=== PATIENT | male | born 1955 | race Caucasian/White ===

== ENCOUNTER 2024-09-30 10:06 | Outpatient (CLI) | payer MEDICARE, BC, SELFPAY ==
--- OUTSIDE RECORDS SUMMARY | 2024-09-30 10:12 | XMS_ITS | Clinical Summary ---
Author Organization [facility] Address [address] [place] [id number] Care Team Providers Care Specialty Finishing Utility Person Name Role Phone Unavailable Primary Care Provider Unavailabl e Source Comments Patient records contain information from all sites at [facility]. For routine questions regarding patient records, call [phone] during business hours, M-F 8:00 AM - 5:00 PM Central Time. Record requests for emergency care only can be directed to [phone] at any time.[facility] Allergies No known active allergies Medications multivitamin tablet Take 1 tablet by mouth daily. 11/06/2010 Active lisinopril-hydro CHLOROthiazide (PRINZIDE,ZESTOR ETIC) 10-12.5 mg per tablet Take 1 tablet by mouth daily. 06/30/2023 Active atorvastatin (LIPITOR) 40 mg tablet Take 40 mg by mouth daily. 07/31/2023 Active cholecalciferol (VITAMIN D3) 50 mcg (2,000 Unit) tablet Take 50 mcg by mouth daily. 08/21/[address] Active [address] tablet Take 81 mg by mouth daily. 04/03/2016 Active co-enzyme Q-10 (CO Q-10) 100 mg capsule Take 100 mg by mouth daily. Active Active Problems No known active problems Immunizations Name Administration Dates Next Due H1N1 All Forms 11/02/2009 H1N1 Inj 11/02/2009 HZV (ZOSTAVAX) 09/30/2013 HepA Adult 10/11/2003,04/20/2002 HepB Adult 12/28/1990,08/31/1990,07/21/1990 Influenza TIV (IM) 08/15/2019, 0,08/01/2009,2007,09/09/2007,09/09/2005,08/10/2003 Influenza, Injectable, Mdck, Preservative Free, Quadrivalent 07/11/2014 Influenza, Quadrivalent, Adj uvanted, Preservative Free 07/30/2023,09/09/2022,10/10/2021,2019 Influenza, Unspecified 09/24/2015 PCV13 12/08/2019 PPSV23 12/13/2020 RZV (SHINGRIX) 05/04/2019,12/07/2018 SARS-COV-2 (COVID-19) - MODE RNA BIVALENT(Discontinued) 09/09/2022 SARS-COV-2 (COVID-19) - MODERNA(Discontinued) 10/10/2021 Td Preservative Free (TENIVA C, DECAVAC) 09/09/2005 Td, (Adult) Unspecified 09/09/2005 Tdap 10/27/2023,03/30/2012 Tuberculin Skin Test, Unspecified 11/02/2009 influenza vaccine quad (FLUZONE/FLUARIX) (6 months and older)(PF) 12/07/2018,10/22/2017,10/15/2016,2014 Social History Tobacco Use Types Packs/Day Years Used Date Smoking Tobacco: Never Smokeless Tobacco: Never Tobacco Cessation:Counseling Given: Not Answered Alcohol Use Standard Drinks/Week Comments Yes 0 (1 standard drink = 0.6 oz pur e alcohol) Nutrition Answer Date Recorded Nutrition: EVOO Fat Source Unknown 10/27 Nutrition: Servings of Fruits/Vegetables per Day Not on file 10/27/2023 Dental Answer Date Recorded Dental: Regular Dentist Unknown 10/27/19 24 Sex and Gender Information Value Date Recorded Sex Assigned at Not on file Legal Sex Male 12:11 PM LICENSED FUNERAL DIRECTOR Gender Identity Not on file Sexual Orientation Not on file Last Filed Vital Signs Vital Sign Reading Time Taken Comments Blood Pressure 103/70 10/28/2023 12:00 AM LICENSED FUNERAL DIRECTOR Pulse 63 10/28/2023 12:15 AM LICENSED FUNERAL DIRECTOR Temperature 37 C (98.6 F) 10/27/2023 11:45 PM LICENSED FUNERAL DIRECTOR Respiratory Rate 19 10/28/2023 12:15 AM LICENSED FUNERAL DIRECTOR Oxygen Saturation 92% 10/28/2023 12:15 AM LICENSED FUNERAL DIRECTOR Inhaled Oxygen Concentration - - Weight - - Height - - Body Mass Index - - Plan of Treatment Health Maintenance Due Date Last Done Comments Hepatitis C Screening 1955 Depression Screening (Annual PHQ-2) 10/26/2023 Fall Risk Screen (Annual) 10/26/2023 COVID-19 Vaccine ( - 2023- season) 2024 09/09/2022, 10/10/2021, 01/05/2021 Influenza Vaccine (#1) 2024 , 09/09/2022, 10/10/2021, Additional history exists Creatinine Level (Kidney Function Test) 10/27/2024 10/27/2023, 07/30/2023, 05/07/2022, Additional history exists Potassium Level 10/27/2024 10/27/2023, 02/2023, 05/07/2022, Additional history exists Sodium Level 10/27/2024 10/27/2023, 1002/2023, 05/07/2022, Additional history exists Fasting Glucose for Diabetes Screening 10/27/2026 10/27/2023, 07/30/2023, 05/07/2022, Additional history exists DTaP,Tdap,and Td Vaccines (3 - Td or Tdap) 10/27/2033 10/27/2023, 03/30/2012, 09/09/2005, Additional history exists Hepatitis B Vaccines Completed 12/28/1990, 08/31/1990, 07/21/1990 Hepatitis A Vaccines Completed 10/11/2003, 04/20/20 02 Zoster Vaccines Completed 05/04/2019, 11/26, 09/30/2013 Pneumococcal vaccine (65+ years) Completed 12/13/2020, 12/08/2019 Colonoscopy Discontinued 10/25/2022, 02/20/2022 Colorectal Cancer Screening Discontinued CT Colonography Discontinued Cologuard Discontinued FIT Discontinued IPV Vaccines Aged Out No longer eligi ble based on patient's age to complete this topic Procedures Procedure Name Priority Date/Time Associated Diagnosis Comments COMPREHENSIVE METABOLIC PANEL, S/P STAT 10/27/2023 9:02 PM LICENSED FUNERAL DIRECTOR from Last 3 Months or Most Recently Relevant to Health Maintenance Results * (ABNORMAL) Comprehensive Metabolic Panel (10/27/2023 9:02 PM LICENSED FUNERAL DIRECTOR) Potassium, P 3.0(L) 3.6 - 5.2 mmol/L 10/27/2023 9:30 PM LICENSED FUNERAL DIRECTOR CNFL Sodium, P 134(L) 135 - 145 mmol/L 10/27/2023 9:30 PM LICENSED FUNERAL DIRECTOR CNFL Chloride, P 99 98 - 107 mmol/L 10/27/2023 9:30 PM LICENSED FUNERAL DIRECTOR CNFL Bicarbonate, P 19(L) 22 - 29 mmol/L 10/27/2023 9:30 PM LICENSED FUNERAL DIRECTOR CNFL Anion Gap, P 16(H) 7 - 15 10/27/2023 9:30 PM LICENSED FUNERAL DIRECTOR CNFL BUN (Blood Urea Nitrogen), P 10 8 - 24 mg/dL 10/27/2023 9:30 PM LICENSED FUNERAL DIRECTOR CNFL Creatinine 0.78 0.74 - 1.35 mg/dL 10/27/2023 9:30 PM LICENSED FUNERAL DIRECTOR CNFL Estimated GFR (eGFR) >90 >=60 mL/min/BS A 10/27/2023 9:30 PM LICENSED FUNERAL DIRECTOR CNFL Comment: Estimated GFR calculated using the 2020 CKD_EPI creatinine equation. Calcium, Total, P 9.1 8.8 - 10.2 mg/dL 10/27/2023 9:30 PM LICENSED FUNERAL DIRECTOR CNFL Glucose, P 171(H) 70 - 140 mg/dL 10/27/2023 9:30 PM LICENSED FUNERAL DIRECTOR CNFL Protein, Total, P 6.9 6.3 - 7.9 g/dL 10/27/2023 9:30 PM LICENSED FUNERAL DIRECTOR CNFL Albumin, P 4.4 3.5 - 5.0 g/dL 10/27/2023 9:30 PM LICENSED FUNERAL DIRECTOR CNFL Aspartate Aminotransferase (AST), P 25 8 - 48 U/L 10/27/2023 9:30 PM LICENSED FUNERAL DIRECTOR CNFL Alkaline Phosphatase, P 80 40 - 129 U/L 10/27/2023 9:30 PM LICENSED FUNERAL DIRECTOR CNFL Alanine Aminotransferase (ALT), P 28 7 - 55 U/L 10/27/2023 9:30 PM LICENSED FUNERAL DIRECTOR CNFL Bilirubin, Total, P 0.3 0.0 - 1.2 mg/dL 10/27/2023 9:30 PM LICENSED FUNERAL DIRECTOR CNFL Blood (Blood, Venous) 10/27/2023 9:02 PM LICENSED FUNERAL DIRECTOR 10/27/2023 9:06 PM LICENSED FUNERAL DIRECTOR us Srinath Newberry APRN, C.N.P., D.N.P. LAB BLOOD AD D-ON Final Result [facility] [address] [place] [id number], [facility] [place] CNFL [facility] in [address] [address] from Last 3 Months or Most Recently Relevant to Health Maintenance Insurance [facility] MEDICARE
--- OUTSIDE RECORDS SUMMARY | 2024-09-30 10:12 | XMS_ITS | Clinical Summary ---
Author Organization [facility] Address [address] [place] [address] Care Team Providers Care Customer Support Agent Name Role Phone No Primary/Referring, Phy Primary Care Provider Unavailable Source Comments You are receiving this document as you are listed as the primary care provider,follow-up provider, or the patient has been referred to you for consultation.This is in compliance with the Medicare and[facility] E[facility] Incentive Program,which states Providers who transition their patient to another setting of careor provider of care or refers their patient to another provider of care shouldprovide summary care record for each transition of care or referral. [employer] Allergies No known active allergies Medications Medication Sig Dispensed Refills Start Date End Date Status oxyCODONE (ROXICODONE) 5 MG immediate release tablet Take 1 Tablet (5 mg) by mouth every 6 hours as needed for Pain. 8 Tablet 10/28/2023 Active atorvastatin (LIPITOR) 40 MG tablet Take 1 Tablet (40 mg) by mouth. 07/31/2023 Active Coenzyme Q10 100 MG Activ e Fluticasone Propionate (CUTIVATE) 0.05 % cream Apply 1 Application topically daily. 09/09/2023 Active ketoconazole (NIZORAL) 2 % cream SMARTSI Application Topical 1 to 2 Times Daily 09/09/2023 Active lisinopril-hydrochl orothiazide (PRINZIDE) 10-12.5 MG tablet Take 1 Tablet by mouth daily. 06/30/2023 Active metroNIDAZOLE (METROCREAM) 0.75 % cream Apply topically. 09/09/2023 Active neomycin-polymyxin- dexamethasone (MAXITROL) 3.5-17454-7.1 OINT eye ointment 09/09/2023 Active Active Problems Problem Noted Date Diagnosed Date Family history of ischemic heart disease 024 Overview (11/26/2023): - His father Hyperlipidemia 11/26/2023 Ascending aorta dilatation 12/07/2018 Essential hypertension 10/22/2017 Elevated PSA 12/26/2015 MUNA (obstructive sleep apnea) 10/08/2015 Colon polyp 11/02/2009 Overview (11/26/2023): Colonoscopy 12/2010 normal repeat in 5 years Colonoscopy 09/2016 diverticulosis repeat in 5 years Colonoscopy 01/2022 4-TA, diverticuli, repeat in 5 years Obesity, unspecified 09/09/2007 Social History Tobacco Use Types Packs/Day Years Used Date Smoking Tobacco: Never Tobacco Cessation:Counseling Given: Not Answered Alcohol Use Standard Drinks/Week Comments Yes 0 (1 standard drink = 0.6 oz pur e alcohol) Sex and Gender Information Value Date Recorded Sex Assigned at Not on file Gender Identity Not on file Sexual Orientation Not on file Last Filed Vital Signs Vital Sign Reading Time Taken Comments Blood Pressure 116/76 10/28/2023 9:13 AM SLUBBER HAND Pulse 59 10/28/2023 9:15 AM SLUBBER HAND Temperature 36.4 C (97.6 F) 10/28/2023 1:17 AM SLUBBER HAND Respiratory Rate 16 10/28/2023 5:00 AM SLUBBER HAND Oxygen Saturation 93% 10/28/2023 9:15 AM SLUBBER HAND Inhaled Oxygen Concentration - - Weight 109.8 kg (242 lb) 11/05/2023 8:00 AM SLUBBER HAND Height 177.8 cm (5' 10) 11/05/2023 8:00 AM SLUBBER HAND Body Mass Index 34.72 11/05/2023 8:00 AM SLUBBER HAND Plan of Treatment Health Maintenance Due Date Last Done Comments Colon Cancer Screening Plan Due 1955 Hep C Screening (Preventive Services) 1955 Medicare Annual Wellness Visit 1955 Cholesterol 1989 COVID-19 Vaccine ( season) 2024 09/09/2022, 10/10/2021, 01/05/2021 Influenza (#1) 2024 07/30/2023, 08/26, 10/10/2021, Additional history exists RSV (1 - 1-dose 75+ series) 2029 DTaP/Tdap/Td (3 - Tdap) 10/27/2033 10/27/19 24, 03/30/2012, 09/09/2005, Additional history exists HepA Aged Out 10/11/2003, 04/20/2002 No lo nger eligible based on patient's age to complete this topic Zoster/Shingles Completed 05/04/2019, 11/26, 09/30/2013 Pneumococcal 65+ Yrs Completed 12/13/2020, 12/08/19 HepB Aged Out No longer eligi ble based on patient's age to complete this topic Hib Aged Out No longer eligi ble based on patient's age to complete this topic IPV (Polio) Aged Out No longer eligi ble based on patient's age to complete this topic RSV Aged Out No longer eligi ble based on patient's age to complete this topic MCV4 Aged Out No longer eligi ble based on patient's age to complete this topic Care Teams Customer Support Agent Relationship Specialty Start Date End Date No Primary/Referring, Phy PCP - General 10/28/23
--- OUTSIDE RECORDS SUMMARY | 2024-09-30 10:12 | XMS_ITS | Clinical Summary ---
Author Organization [facility] Address [place], [place] [address] Care Team Providers Care Unix Consultant Name Role Phone VotelMircale MD Primary Care Provider + Allergies No known active allergies Medications Medication Sig Dispensed Refills Start Date End Date Status PEPCID AC 10 MG TAB prn 0 09/09/2007 Activ e Cholecalciferol, Vitamin D3, (VITAMIN D-3) 2,000 unit tablet Take by mouth once daily. 0 08/21/2010 Active omega-3 fatty acids-vitamin E (FISH OIL) 1,000 mg Cap Take 1 capsule by mouth once daily. 0 11/06/2010 Active multivitamin (MVI) tablet Take 1 tablet by mouth once daily. 0 11/06/2010 Active aspirin (ECOTRIN) 81 mg enteric coated tablet Take 1 tablet by mouth once daily with a meal. 0 04/03/2016 Active coenzyme q10 (CO Q-10) 100 mg cap Active hydrocortisone 1 % creamIndications:Ski n irritation Apply topically to affected area(s) 2 times daily. Use as instructed 20 g 10/13/2019 Active ketoconazole 2% topical (NIZORAL) creamIndications:Den orrheic dermatitis Apply topically to affected area(s) 2 times daily. 60 g 10/10/2021 Active CPAPIndications:MUNA (obstructive sleep apnea) CPAP machine for home use at pressure- 9 cmw starting pressure 7 cmw; nasal mask x1/3month with nasal cushion x2/mo Heat humidifier x 1/5 year, Humidifier chamber x 1/6mo, standard tubing x 1/3mo, Headgear x 1/6mo, Chin strap x 1/6 months, Filters: Disposable x 2pk/1mo & Reusable x 1pk/6mo BHAVANI #99 Usage daily 1 Each 11 01/01/2024 Active atorvastatin (LIPITOR) 40 mg tabletIndications:El evated LDL cholesterol level Take 1 Tablet (40 mg) by mouth once daily. 90 Tablet 3 08/02/2024 Active lisinopril-hydrochlo rothiazide (10-12.5 mg) tablet (PRINZIDE; ZESTORETIC)Indicatio ns:Essential hypertension Take 1 Tablet by mouth once daily. 90 Tablet 3 08/02/2024 Active sildenafil citrate (VIAGRA) 25 mg tabletIndications:Er ectile dysfunction of organic origin Take 1 Tablet (25 mg) by mouth once daily if needed for Erectile Dysfunction. Take 30 minutes to 4 hours before sexual activity. Max 100mg/24hr. 30 Tablet 11 08/02/2024 Active Active Problems Problem Noted Date Diagnosed Date Ascending aorta dilatation 12/07/2018 HTN (hypertension) 10/22/2017 Elevated PSA 12/26/2015 MUNA 11/03/06 AHI 50.5 10/08/2015 Colon polyp 11/02/2009 Overview (02/24/2022): Colonoscopy 12/2010 normal repeat in 5 years Colonoscopy 09/2016 diverticulosis repeat in 5 years Colonoscopy 01/2022 4-TA, diverticuli, repeat in 5 years Unspecified sleep apnea 09/09/2007 Overview (09/09/2007): on cpap Obesity, unspecified 09/09/2007 HYPERTENSION , BORDERLINE Other and unspecified hyperlipidemia POSITIVE FAMILY HISTORY OF ISCHEMIC HEART DISEAS E Overview (09/28/2006): - His father Resolved Problems Problem Noted Date Diagnosed Date Resolved Date Melanoma of skin, site unspecified 09/09/2007 12/13/2020 Overview (09/09/2007): superficial spread type completely excised PAROXYSMAL ATRIAL FIBRILLATION 12/13/2020 Overview (11/02/2009): Ablation successful 10/2006 Encounters Date Type Department Care Team Description 09/30/2024 Travel 08/24/2024 11:00 AM CDT Ancillary Procedure [facility] [address] [place] [address] 08/24/2024 Travel 08/15/[address] [facility] [address] [place] [address] David Jeter MD Questions 08/04/[address] [facility] [address] [place] [address] Miracle Mckeon MD Prior Authorization (sildenafil citrate (VIAGRA) 25 mg tablet EXCLUDED ) 08/02/2024 10:00 AM CDT Office Visit [address] [address] Miracle Mckeon MD Medicare ANNUAL (subsequent) Visit (69 year old male); Immunization/Injectio n 08/02/[address] [address] Miracle Mckeon MD Preoperative Exam 08/02/[address] [facility] [address] [place] [address] David Jeter MD Appointment 08/02/2024 Travel 07/12/2024 Travel 07/12/[address] [address] Miracle Mckeon MD Refill Request (Lisinopril-hydrochlo rothiazide 10 Mg-12.5 Mg) from Last 3 Months Immunizations Name Administration Dates Next Due COVID-19 vaccine (Geoffrey-J& J) MIKAL, MDV 01/05/2021 COVID-19 vaccine (Moderna 100mcg/0.5mL) MIKAL, MDV 10/10/2021 COVID-19 vaccine (Moderna 50mcg/0.5mL) 12YO+ BIVALENT PF, MDV 09/09/2022 Hepatitis A (Adult) 10/11/2003,04/20/2002 Hepatitis B (Adult) 12/28/1990,08/31/1990,1989 Influenza A (H1N1), Inactivated 11/02/2009 Influenza A (H1N1), Inactiva kuldip (Age >=3 Years) 11/02/2009 Influenza Virus, Unspecified 09/24/2015 Influenza, IIV3 (Age >=3 years) 08/21/20 10,08/01/2009,09/18/2008,2006,09/09/2005,08/10/2003 Influenza, IIV4 12/07/2018, 7,10/15/2016,2014,07/11/2014 Influenza, Inactivated AIIV4 (Age 65+ Years) Preserv Free 07/30/2023,09/09/2022,10/10/2021,2019 Influenza, Inactivated IIV3 (Age 65+ Years) Preserv Free 08/02/2024,08/15/2019 Pneumococcal Poly,23-Valent (Pneumovax) 12/13/2020 Pneumococcal conj 13-Valent (Prevnar 13) 12/08/2019 TD, UNSPECIFIED 09/09/2005 Td (Age >=7 Years) 09/09/2005 Td, Preservative Free (age > = 7 Years) 09/09/2005 Tdap 10/27/2023,03/30/2012 Tuberculin (PPD) 11/02/2009 Tuberculin Skin Test, Unspecified 11/02/2009 Zoster (Shingrix-RZV, recombinant) 05/04/2019, Zoster (Zostavax-ZVL, live) 09/30/2013 Family History Medical History Relation Name Comments Other Father d79, cad, strok e Other Mother hx liver ca, di ed of CVA age 87 Other Sister 2 breast ca Relation Name Status Comments Father Mother Sister 1 Alive Sister 2 Alive Social History Tobacco Use Types Packs/Day Years Used Date Smoking Tobacco: Never Smokeless Tobacco: Never Tobacco Cessation:Counseling Given: Yes Alcohol Use Standard Drinks/Week Comments Yes 0 (1 standard drink = 0.6 oz pur e alcohol) 10 drinks per week PHQ-2 Answer Date Recorded PHQ-2 TOTAL SCORE 0 08/02/2024 Social Connections Answer Date Recorded Do you often feel lonely or isolated from those around you? 0 08/02/2024 Financial Resource Strain Answer Date R ecorded Difficulty of Paying Living Expenses 3 08/02/2024 Difficulty of Paying Living Expenses Not on file 08/02/2024 Food Insecurity Answer Date Recorded Do you worry your food will run out before you are able to buy more? 1 08/02/2024 Transportation Needs Answer Date Record ed Does lack of transportation keep you from medica l appointments? 1 08/02/2024 Does lack of transportation keep you from work, meetings or getting things that you need? 1 08/02/2024 Housing Stability Answer Date Recorded What is your housing situation today? 1 08/02/2024 Sex and Gender Information Value Date Recorded Sex Assigned at Not on file Gender Identity Not on file Sexual Orientation Not on file Obstetrics History Last Filed Vital Signs Vital Sign Reading Time Taken Comments Blood Pressure 134/77 08/02/2024 10:20 AM CDT Pulse 77 08/02/2024 10:20 AM CDT Temperature 36.7 C (98 F) 08/02/2024 10:20 AM CDT Respiratory Rate 16 08/13/2020 3:26 PM CDT Oxygen Saturation 95% 08/02/2024 10: 20 AM CDT Inhaled Oxygen Concentration - - Weight 108.4 kg (238 lb 14.4 oz) 2023 10:20 AM CDT Height 173.8 cm (5' 8.43) 08/02/2024 1 0:20 AM CDT Body Mass Index 35.87 08/02/2024 10:20 AM CDT Plan of Treatment Upcoming Encounters Date Type Department Care Team (Late st Contact Info) Description 09/30/2024 10:15 AM TRACTOR TECHNICIAN Office Visit [facility] [address] [place] [address] David eJter MD [address] [place] [address] Arrived Health Maintenance Due Date Last Done Comments COVID-19 vaccine series ( season) 2024 09/09/2022, 10/10/2021, 01/05/2021 BMI (ht and wt on same day) for age 18+ 08/02/2025 08/02/2024, 10/08/2023, 07/30/2023, Additional history exists Medicare Wellness for age 65+ 08/03/2025, 07/30/2023, 05/07/2022, Additional history exists Depression screening for age 12+ 08/04/2025 08/04/2024, 08/02/2024, 08/02/2024, Additional history exists Colonoscopy through age 75 02/20/202702/20, 02/20/2022, 10/10/2016, Additional history exists Lipids for age 45-75 08/02/2029 08/02/2024, 07/30/2023, 05/07/2022, Additional history exists Tetanus booster 10/27/2033 10/27/2023, 02/2012, 09/09/2005, Additional history exists Zoster (shingles) series for age 50+ Completed 05/04/2019, 12/07/2018, 09/30/2013 Pneumococcal series for age 65+ Completed , 12/08/2019 Hepatitis C screening for ag e 18-79 Completed 05/07/2022 Tdap Completed 10/27/2023, 03/30/2012 Influenza for age 65+ Completed 08/02/2024 , 07/30/2023, 09/09/2022, Additional history exists Procedures Procedure Name Priority Date/Time Associated Diagnosis Comments ESOPHAGOGASTRODUODENOSCOPY Routine 09/30 8:05 AM TRACTOR TECHNICIAN Esophageal dysphagia ECHO TTE COMPLETE W CONTRAST Routine 11:55 AM CDT Aneurysm of ascending aorta without rupture (HC) CBC WITH AUTO DIFFERENTIAL Routine 08/02 11:41 AM CDT LIPID PANEL W REFLEX MEASURE D LDL Routine 08/02/2024 11:41 AM CDT Elevated LDL cholesterol level ALT (SGPT) Routine 08/02/2024 11:41 AM CDT Elevated LDL cholesterol level BASIC METABOLIC PANEL Routine 08/02/2024 11:41 AM CDT Medicare annual wellness visit, subsequent ANTI HCV Routine 05/07/2022 10:55 AM CDT Screening for hepatitis C declined COLONOSCOPY 02/20/2022 11:01 AM CDT from Last 3 Months or Most Recently Relevant to Health Maintenance Results * ECHO TTE COMPLETE W CONTRAST (08/24/2024 11:55 AM CDT) AORTIC VALVE MEAN PG 7 mmHg EJECTION FRACTION 59 % LVEDD 4.0 cm Anatomical Region Laterality Modality Ultrasound 08/24/2024 11:0 4 AM CDT Narrative 08/24/2024 12:36 PM CDT ECHOCARDIOGRAM JOSS SANDERSON : 1955 69 years Study Date: 08/24/2024 11:04:06 AM Gender: M BP: 134/77 mmHg Height: 173.00 cm BSA: 2.20 m Weight: 108.00 kg Tech: MSR Referring MD: MIRACLE MCKEON Site: [facility] Reading Location: Mobile OP Patient Location: Outpatient. Procedure: Color Doppler, Spectral Doppler and 2D w/ Contrast. Indication for study: Aneurysm of ascending aorta without rupture Cardiac Rhythm: Regular.Study quality: Technically limited. Final Impressions: 1. Technically limited exam. 2. Normal left ventricular size, normal wall thickness, normal global systolic function, calculated EF of 59 %. 3. Mildly enlarged left atrium. 4. The aortic valve is trileaflet and sclerotic, no stenosis and mild eccentric posteriorly directed regurgitation. 5. The aortic sinus is dilated with a maximal diameter of 4.2 cm. 6. The ascending aorta is normal for age/sex/bsa with a maximal diameter of 3.9 cm. 7. Echo contrast was administered to enhance visualization of all left ventricular segments. 8. Compared to prior study from 2021, aortic sinus has increased from 4.0- >4.2cm. Otherwise no change. Chamber Sizes and Function Normal left ventricular size, normal wall thickness, normal global systolic function, calculated EF of 59 %. No resting regional wall motion abnormality visualized. Left atrial size is mildly enlarged. Right ventricular cavity size is normal, global systolic RV function is normal. RV wall thickness is normal. The right atrium is normal. The pulmonary artery is not well visualized. The sinus of Valsalva is dilated. The ascending aorta is normal for age/sex/bsa. Valves, RV Pressures and Diastolic Function The aortic valve is trileaflet and sclerotic, no stenosis and mild regurgitation. The mitral valve is normal in structure, trace mitral regurgitation. Indeterminate pattern of LV diastolic filling. The tricuspid valve is normal in structure. Tricuspid regurgitation is trace regurgitation. The pulmonic valve is not well visualized. Trace pulmonary regurgitation. Masses, Effusion, Shunts There is no pericardial effusion. The inferior vena cava is dilated, respiratory size variation less than 50%. No left to right shunting was detected by limited color flow Doppler interrogation of the interatrial septum. MEASUREMENTS AND CALCULATIONS 2-D Measurements and LV Function: LVID (d) 4.0 cm Planimetered EF 59 % LVID (s) 2.5 cm LV FS% (2D) 38 % IVS (d) 0.8 cm LVOT diameter 2.1 cm LVPW (d) 1.0 cm HR 57 bpm Ao Sinus 4.2 cm LA Vol index 39 ml/m2 Asc Ao 3.9 cm RV Max 4C (d) 4.2 cm Diastology: Mitral Tissue Doppler E Peak 0.8 m/s e', Septum 0.09 m/s A Peak 0.6 m/s e', Lateral 0.09 m/s E/A 1.4 E/e' Average 9.26 DT 159 msec Aortic Valve: Vmax 1.8 m/s RACHAEL (V) 2.14 cm AI P 1/2 728 msec VTI 0.44 m RACHAEL (I) 1.90 cm LVOT V max 1.2 m/s Max PG 13 mmHg LVOT VTI 0.25 m Mean PG 7 mmHg SV 83 ml Dim Index 0.56 SV index 38 ml/m CO 4.8 l/min CI 2.2 l/min/m Mitral Valve: MVA 4.8 cm MV P 1/2 46 msec Tricuspid Valve and estimated PA pressures: TAPSE 2.7 cm Contrast documentation: 3ml ml diluted Definity, lot #[id number], [facility]# [id number] was administered peripherally to enhance visualization of all left ventricular segments. . This study was interpreted by an [facility] accredited facility. Final Procedure Note Natanael Beard MD - 08/24/2024 ECHOCARDIOGRAM JOSS SANDERSON : 1955 69 years Study Date: 08/24/2024 11:04:06 AM Gender: M BP: 134/77 mmHg Height: 173.00 cm BSA: 2.20 m Weight: 108.00 kg Tech: MSR Referring MD: MIRACLE MCKEON Site: [facility] Reading Location: Mobile OP Patient Location: Outpatient. Procedure: Color Doppler, Spectral Doppler and 2D w/ Contrast. Indication for study: Aneurysm of ascending aorta without rupture Cardiac Rhythm: Regular.Study quality: Technically limited. Final Impressions: 1. Technically limited exam. 2. Normal left ventricular size, normal wall thickness, normal globalsystolic function, calculated EF of 59 %. 3. Mildly enlarged left atrium. 4. The aortic valve is trileaflet and sclerotic, no stenosis and mildeccentric posteriorly directed regurgitation. 5. The aortic sinus is dilated with a maximal diameter of 4.2 cm. 6. The ascending aorta is normal for age/sex/bsa with a maximal diameterof 3.9 cm. 7. Echo contrast was administered to enhance visualization of all leftventricular segments. 8. Compared to prior study from 2021, aortic sinus has increased from4.0->4.2cm. Otherwise no change. Chamber Sizes and Function Normal left ventricular size, normal wall thickness, normal globalsystolic function, calculated EF of 59 %. No resting regional wall motionabnormality visualized. Left atrial size is mildly enlarged. Rightventricular cavity size is normal, global systolic RV function is normal.RV wall thickness is normal. The right atrium is normal. The pulmonaryartery is not well visualized. The sinus of Valsalva is dilated. Theascending aorta is normal for age/sex/bsa. Valves, RV Pressures and Diastolic Function The aortic valve is trileaflet and sclerotic, no stenosis and mildregurgitation. The mitral valve is normal in structure, trace mitralregurgitation. Indeterminate pattern of LV diastolic filling. Thetricuspid valve is normal in structure. Tricuspid regurgitation is traceregurgitation. The pulmonic valve is not well visualized. Trace pulmonaryregurgitation. Masses, Effusion, Shunts There is no pericardial effusion. The inferior vena cava is dilated,respiratory size variation less than 50%. No left to right shunting wasdetected by limited color flow Doppler interrogation of the interatrialseptum. MEASUREMENTS AND CALCULATIONS 2-D Measurements and LV Function: LVID (d) 4.0 cm Planimetered EF 59 % LVID (s) 2.5 cm LV FS% (2D) 38 % IVS (d) 0.8 cm LVOT diameter 2.1 cm LVPW (d) 1.0 cm HR 57 bpm Ao Sinus 4.2 cm LA Vol index 39 ml/m2 Asc Ao 3.9 cm RV Max 4C (d) 4.2 cm Diastology: Mitral Tissue Doppler E Peak 0.8 m/s e', Septum 0.09 m/s A Peak 0.6 m/s e', Lateral 0.09 m/s E/A 1.4 E/e' Average 9.26 DT 159 msec Aortic Valve: Vmax 1.8 m/s RACHAEL (V) 2.14 cm AI P 1/2 728 msec VTI 0.44 m RACHAEL (I) 1.90 cm LVOT V max 1.2 m/s Max PG 13 mmHg LVOT VTI 0.25 m Mean PG 7 mmHg SV 83 ml Dim Index 0.56 SV index 38 ml/m CO 4.8 l/min CI 2.2 l/min/m Mitral Valve: MVA 4.8 cm MV P 1/2 46 msec Tricuspid Valve and estimated PA pressures: TAPSE 2.7 cm Contrast documentation: 3ml ml diluted Definity, lot #[id number], [facility]#[id number] was administered peripherally to enhance visualization of allleft ventricular segments. . This study was interpreted by an [facility] accredited facility. Final Miracle Mckeon MD ECHO ORD * (ABNORMAL) CBC WITH AUTO DIFFERENTIAL (08/02/2024 11:41 AM CDT) WHITE BLOOD CELL COUNT 6.9 3.8 - 10.8 Thousand/u L [facility] RED BLOOD CELL COUNT 4.05(L) 4.20 - 5.80 Million/uL [facility] HEMOGLOBIN 13.9 13.2 - 17.1 g/dL [facility] HEMATOCRIT 40.1 38.5 - 50.0 % [facility] MCV 99.0 80.0 - 100.0 fL [facility] MCH 34.3(H) 27.0 - 33.0 pg [facility] MCHC 34.7 32.0 - 36.0 g/dL [facility] Comment: For adults, a slight decrease in the calculated MCHC value (in the range of 30 to 32 g/dL) is most likely not clinically significant; however, it should be interpreted with caution in correlation with other red cell parameters and the patient's clinical condition. RDW 12.7 11.0 - 15.0 % [facility] PLATELET COUNT 207 140 - 400 Thousand/u L [facility] MPV 9.8 7.5 - 12.5 fL [facility] ABSOLUTE NEUTROPHILS 4,651 1,500 - 7,800 cells/uL [facility] ABSOLUTE LYMPHOCYTES 1,297 850 - 3,900 cells/uL [facility] ABSOLUTE MONOCYTES 752 200 - 950 cells/uL [facility] ABSOLUTE EOSINOPHILS 159 15 - 500 cells/uL [facility] ABSOLUTE BASOPHILS 41 0 - 200 cells/uL [facility] NEUTROPHILS 67.4 % [facility] LYMPHOCYTES 18.8 % [facility] MONOCYTES 10.9 % [facility] EOSINOPHILS 2.3 % [facility] BASOPHILS 0.6 % [facility] 08/02/2024 11:4 1 AM CDT 08/02/2024 11:41 AM CDT Miracle Mckeon MD HEMATOLOGY [employer] [facility] [address] [place] [address], [facility] [address] [place] [address] * (ABNORMAL) LIPID PANEL W REFLEX MEASURED LDL (08/02/2024 11:41 AM CDT) [facility] Signature CHOLESTEROL, TOTAL 187 <200 mg/dL [facility] HDL CHOLESTEROL 59 > OR = 40 mg/dL [facility] TRIGLYCERIDES 109 <150 mg/dL [facility] LDL-CHOLESTEROL 107(H) mg/dL (calc) [facility] Comment: Reference range: <100 Desirable range <100 mg/dL for primary prevention; <70 mg/dL for patients with CHD or diabetic patients with > or = 2 CHD risk factors. LDL-C is now calculated using the Dina calculation, which is a validated novel method providing better accuracy than the Friedewald equation in the estimation of LDL-C. David SHIN et al. CELSA. 2013;310(19): 8144-5952 (http://education.[employer]/faq/NCU190) CHOL/HDLC RATIO 3.2 <5.0 (calc) [facility] NON HDL CHOLESTEROL 128 <130 mg/dL (calc) [facility] Comment: For patients with diabetes plus 1 major ASCVD risk factor, treating to a non-HDL-C goal of <100 mg/dL (LDL-C of <70 mg/dL) is considered a therapeutic option. Blood BLOOD SPECIMEN / Unknown 08/02/2024 11:41 AM CDT 08/02/2024 11:41 AM CDT Miracle Mckeon MD CHEMISTRY [employer] [facility] [address] [place] [address], [facility] [address] [place] [address] * ALT (SGPT) (08/02/2024 11:41 AM CDT) Pathologist [facility] ALT 20 9 - 46 U/L [facility] Blood BLOOD SPECIMEN / Unknown 08/02/2024 11:41 AM CDT 08/02/2024 11:41 AM CDT Miracle Mckeon MD CHEMISTRY [facility] [address] [place] [address], [facility] [address] [place] [address] * (ABNORMAL) BASIC METABOLIC PANEL (08/02/2024 11:41 AM CDT) Pathologist [facility] GLUCOSE 103(H) 65 - 99 mg/dL [facility] Comment: Fasting reference interval For someone without known diabetes, a glucose value between 100 and 125 mg/dL is consistent with prediabetes and should be confirmed with a follow-up test. UREA NITROGEN (BUN) 15 7 - 25 mg/dL [facility] CREATININE 0.81 0.70 - 1.28 mg/dL [facility] EGFR 95 > OR = 60 mL/min/1. 73m2 [facility] BUN/CREATININE RATIO SEE NOTE: 6 - 22 (calc) [facility] Comment: Not Reported: BUN and Creatinine are within reference range. SODIUM 138 135 - 146 mmol/L [facility] POTASSIUM 4.3 3.5 - 5.3 mmol/L [facility] CHLORIDE 103 98 - 110 mmol/L [facility] CARBON DIOXIDE 25 20 - 32 mmol/L [facility] ELECTROLYTE BALANCE 10 7 - 17 mmol/L (calc) [facility] CALCIUM 9.6 8.6 - 10.3 mg/dL [facility] Blood BLOOD SPECIMEN / Unknown 08/02/2024 11:41 AM CDT 08/02/2024 11:41 AM CDT Miracle Mckeon MD CHEMISTRY [facility] [employer] [facility] [address] [place] [address], [facility] [address] [place] [address] * ANTI HCV (05/07/2022 10:55 AM CDT) HEPATITIS C ANTIBODY Non-React damien Non-React damien 05/07/2022 9:16 PM CDT [facility] Comment:Antibodies to HCV no t detected; does not exclude the possibility of exposure to HCV. Blood BLOOD SPECIMEN / Unknown Venipuncture / Unknown 05/07/2022 10:55 AM CDT 05/07/2022 10:56 AM CDT Miracle Mckeon MD SEND OUTS [facility] [address] [place] [address], [place] * COLONOSCOPY (02/20/2022 11:01 AM CDT) 02/20/2022 11:0 1 AM CDT Narrative Transcriptions David Jeter MD - 02/20/2022 11:46 AM CDT Patient Name: Joss Sanderson Procedure Date: 02/20/2022 Gender: Male Date of : 1955 Admit Type: Outpatient Procedure: Colonoscopy Proceduralist: David Jeter MD , Shahana Torres, RN(Nurse) Indications/Pre-Op Diagnosis: High risk colon cancer surveillance:Personal history of adenoma less than 10 mm in size, Last colonoscopy: September 2016 Medications: Fentanyl 100 micrograms IV, Midazolam 2 mgIV, The level of sedation administered wasmoderate Procedure Description: The patient had risks, benefits and alternatives explained to andgave informed consent. The patient had a stable cardiopulmonary status and judged an adequate candidate for conscious sedation. The Colon [id number] was passed through the anus and advancedto the cecum, identified by appendiceal orifice and ileocecal valve. The colonoscopy was performed without difficulty. The patient toleratedthe procedure well. The quality of the bowel preparation was good. The ileocecal valve, appendiceal orifice, and rectum were photographed. Complications: No immediate complications. Estimated Blood Loss & Specimen: Estimated blood loss: none. Specimen collected - Yes and sent to Laboratory Findings: The perianal and digital rectal examinations were normal. Two sessile polyps were found in the cecum. The polyps were 2 to 3 mmin size. These polyps were removed with a cold snare. Resection and retrieval were complete. Two sessile polyps were found in the ascending colon. The polyps were3 mm in size. These polyps were removed with a cold snare. Resectionand retrieval were complete. Scattered small and large-mouthed diverticula were found in theentire colon. The exam was otherwise without abnormality. Impressions/Post-Op Diagnosis: - Two 2 to 3 mm polyps in the cecum, removed with a cold snare.Resected and retrieved. - Two 3 mm polyps in the ascending colon, removed with a cold snare. Resected and retrieved. - Diverticulosis in the entire examined colon. - The examination was otherwise normal. Recommendation: - Patient has a contact number available for emergencies. The signsand symptoms of potential delayed complications were discussed with the patient. Return to normal activities tomorrow. Written discharge instructions were provided to the patient. - Resume previous diet. - Continue present medications. - Await pathology results. - Repeat colonoscopy is recommended. The colonoscopy date will be determined after pathology results from today's exam become available for review. Moderate Sedation: Moderate (conscious) sedation was administered by the endoscopy nurse and supervised by the endoscopist. The following parameters were monitored: oxygen saturation, heart rate, respiratory rate, blood pressure, adequacy of pulmonary ventilation and reponse to care. Please refer to the patient's medical record flowsheets and nursing notes for moderate sedation details. Total physician intraservice time was *16 minutes. David Jeter MD 02/20/2022 11:46:50 AM This report has been signed electronically. Note Initiated On: 02/20/2022 11:01 AM Procedure Code(s): --- Professional --- 87719, Colonoscopy, flexible; with removalof tumor(s), polyp(s), or other lesion(s) bysnare technique Diagnosis Code(s): --- Professional --- Z86.010, Personal history of colonicpolyps K63.5, Polyp of colon K57.30, Diverticulosis of large intestine without perforation or abscess withoutbleeding CPT copyright 2020 [employer]. All rights reserved. The codes documented in this report are preliminary and upon activity assistant reviewmay be revised to meet current compliance requirements. Scope In: 11:26:12 AM Scope Withdrawal Time 0 hours 11 minutes 45 seconds Scope Out: 11:40:41 AM David Jeter MD PROCEDURE ORD from Last 3 Months or Most Recently Relevant to Health Maintenance Advance Directives * Full Code (Latest Code Status on File) Date Activated Date Inactivated Comments 01/02/2016 12:30 PM 01/02/2016 8:23 PM * Full Code Date Activated Date Inactivated Comments 11/23/2006 5:46 AM 11/24/2006 2:59 PM Care Teams Unix Consultant Relationship Specialty Start Date End Date Votel, Miracle Rucker MD [address] [place] [address] PCP - General Family Practice 12/27/15
--- OUTSIDE RECORDS SUMMARY | 2024-09-30 10:12 | XMS_ITS ---
Author Organization [facility] Address [address] [place] [address] Care Team Providers Care Bottom Polisher Name Role Phone Unavailable Unavailable Unavailable Surgery Details Not on file Complications Check Surgery Details section. Procedure Estimated Blood Loss Check Surgery Details section. Procedure Findings Check Surgery Details section. Procedure Specimens Taken Check Surgery Details section.
--- OUTSIDE RECORDS SUMMARY | 2024-09-30 10:12 | XMS_ITS | Referral Summary ---
Author Organization [facility] Address [address] [place] [id number] Care Team Providers Care Coding Support Specialist Name Role Phone Unavailable Primary Care Provider Unavailabl e Source Comments Patient records contain information from all sites at [facility]. For routine questions regarding patient records, call [phone] during business hours, M-F 8:00 AM - 5:00 PM Central Time. Record requests for emergency care only can be directed to [phone] at any time.[facility] Allergies No known active allergies Medications [...] on file Legal Sex Male 12:11 PM CYBER INCIDENT ANALYST Gender Identity Not on file Sexual Orientation Not on file Last Filed Vital Signs Vital Sign Reading Time Taken Comments Blood Pressure 103/70 10/28/2023 12:00 AM CYBER INCIDENT ANALYST Pulse 63 10/28/2023 12:15 AM CYBER INCIDENT ANALYST Temperature 37 C (98.6 F) 10/27/2023 11:45 PM CYBER INCIDENT ANALYST Respiratory Rate 19 10/28/2023 12:15 AM CYBER INCIDENT ANALYST Oxygen Saturation 92% 10/28/2023 12:15 AM CYBER INCIDENT ANALYST Inhaled Oxygen Concentration - - Weight - - Height - - Body Mass Index - - Plan of Treatment Not on file Procedures Procedure Name Priority Date/Time Associated Diagnosis Comments COMPREHENSIVE METABOLIC PANEL, S/P STAT 10/27/2023 9:02 PM CYBER INCIDENT ANALYST from Last 3 Months or Most Recently Relevant to Health Maintenance Results * (ABNORMAL) Comprehensive Metabolic Panel (10/27/2023 9:02 PM CYBER INCIDENT ANALYST) Potassium, P 3.0(L) 3.6 - 5.2 mmol/L 10/27/2023 9:30 PM CYBER INCIDENT ANALYST CNFL Sodium, P 134(L) 135 - 145 mmol/L 10/27/2023 9:30 PM CYBER INCIDENT ANALYST CNFL Chloride, P 99 98 - 107 mmol/L 10/27/2023 9:30 PM CYBER INCIDENT ANALYST CNFL Bicarbonate, P 19(L) 22 - 29 mmol/L 10/27/2023 9:30 PM CYBER INCIDENT ANALYST CNFL Anion Gap, P 16(H) 7 - 15 10/27/2023 9:30 PM CYBER INCIDENT ANALYST CNFL BUN (Blood Urea Nitrogen), P 10 8 - 24 mg/dL 10/27/2023 9:30 PM CYBER INCIDENT ANALYST CNFL Creatinine 0.78 0.74 - 1.35 mg/dL 10/27/2023 9:30 PM CYBER INCIDENT ANALYST CNFL Estimated GFR (eGFR) >90 >=60 mL/min/BS A 10/27/2023 9:30 PM CYBER INCIDENT ANALYST CNFL Comment: Estimated GFR calculated using the 2020 CKD_EPI creatinine equation. Calcium, Total, P 9.1 8.8 - 10.2 mg/dL 10/27/2023 9:30 PM CYBER INCIDENT ANALYST CNFL Glucose, P 171(H) 70 - 140 mg/dL 10/27/2023 9:30 PM CYBER INCIDENT ANALYST CNFL Protein, Total, P 6.9 6.3 - 7.9 g/dL 10/27/2023 9:30 PM CYBER INCIDENT ANALYST CNFL Albumin, P 4.4 3.5 - 5.0 g/dL 10/27/2023 9:30 PM CYBER INCIDENT ANALYST CNFL Aspartate Aminotransferase (AST), P 25 8 - 48 U/L 10/27/2023 9:30 PM CYBER INCIDENT ANALYST CNFL Alkaline Phosphatase, P 80 40 - 129 U/L 10/27/2023 9:30 PM CYBER INCIDENT ANALYST CNFL Alanine Aminotransferase (ALT), P 28 7 - 55 U/L 10/27/2023 9:30 PM CYBER INCIDENT ANALYST CNFL Bilirubin, Total, P 0.3 0.0 - 1.2 mg/dL 10/27/2023 9:30 PM CYBER INCIDENT ANALYST CNFL Blood (Blood, Venous) 10/27/2023 9:02 PM CYBER INCIDENT ANALYST 10/27/2023 9:06 PM CYBER INCIDENT ANALYST Srinath Newberry APRN, C.N.P., D.N.P. LAB BLOOD AD D-ON Final Result [facility] [address] [place] [id number], [facility] CNFL [facility] in [address] [address] from Last 3 Months or Most Recently Relevant to Health Maintenance Insurance [facility] MEDIC[facility]
--- NOTE | 2024-09-30 11:55 | W.ANESCHARGE ---
Anesthesia Charges Start Date/Time Anesthesia Start Date: 09/30/24 Anesthesia Start Time: 11:39 Stop Date/Time Anesthesia Stop Date: 09/30/24 Anesthesia Stop Time: 11:53 Summary Extremes of Age - Over 70 or under 1: TELECOMMUNICATIONS ADMINISTRATOR
--- NOTE | 2024-09-30 12:22 | W.ANESCHARGE ---
Anesthesia Charges Start Date/Time Anesthesia Start Date: 09/30/24 Anesthesia Start Time: 11:39 Stop Date/Time Anesthesia Stop Date: 09/30/24 Anesthesia Stop Time: 11:53 Summary Extremes of Age - Over 70 or under 1: MDA
== END 2024-09-30 10:07 | disposition home or self-care (01) ==
PROVIDERS: PCP Family Medicine; Visit Provider Internal Medicine Gastroenterology
DX: R13.10 Dysphagia, unspecified (principal); K22.5 Diverticulum of esophagus, acquired; K31.89 Other diseases of stomach and duodenum; Q39.6 Congenital diverticulum of esophagus
CPT/HCPCS: 00731; 43235; 99100; J2704; J3010

== ENCOUNTER 2024-10-05 11:08 | Outpatient (CLI) | payer MEDICARE, BC, SELFPAY ==
--- NOTE | 2024-10-05 11:15 | CRLHL7_ITS ---
For Patients: As a result of the Century Cures Act, medical imaging exams and procedure reports are released immediately into your electronic medical record. You may view this report before your referring provider. If you have questions, please contact your health care provider. Technique: Double-contrast esophagram performed after the uneventful administration of effervescent crystals and thick barium. Fluoroscopy time 51 SECONDS. Indication: esophageal dysphagia, Zenker diverticulum Comparison: None. Findings: Zenker diverticulum is present measuring approximately 1.9 x 1.2 cm. No obstruction. Residual contrast remains in the diverticulum. Small sliding hiatal hernia is present. Mild decreased esophageal motility. Spontaneous reflux noted. No esophageal mucosal irregularity. Impression: 1.9 cm Zenker diverticulum. Dictated by Srinath Chavez MD @ 10/05/2024 12:12:04 PM (Electronically Signed)
== END 2024-10-05 11:09 | disposition home or self-care (01) ==
LOC: RAD 11:08
PROVIDERS: PCP Family Medicine; Visit Provider Internal Medicine Gastroenterology
DX: R13.19 Other dysphagia (principal); K22.5 Diverticulum of esophagus, acquired
CPT/HCPCS: 74221